=== PATIENT | female | born 1990 | race African-American/Black ===

== ENCOUNTER 2016-06-12 19:04 | Emergency (ER) | payer MEDICAID ==
[~2016-06-12] VITALS: Ht 165.1 cm; Wt 68.0 kg
[~2016-06-12 19:04] MED LIST: IBUPROFEN600 MG ORAL; NKM; PERCOCET 5-3251 EACH PO; VICODIN 5-5001 EACH PO
[2016-06-12 21:50] VITALS: BP 120/75
[2016-06-12 22:10] VITALS: BP 120/75
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
== END 2016-06-12 22:10 | disposition left against medical advice (07) ==
LOC: EMR 20:55
DX: S16.1XXA Strain of muscle, fascia and tendon at neck level, initial encounter (principal); S20.212A Contusion of left front wall of thorax, initial encounter; V43.62XA Car passenger injured in collision with other type car in traffic accident, initial encounter; Y93.9 Activity, unspecified; Y92.410 Unspecified street and highway as the place of occurrence of the external cause
CPT/HCPCS: 99282

== ENCOUNTER 2016-06-15 14:30 | Emergency (ER) | payer MEDICAID ==
[~2016-06-15] VITALS: Ht 165.1 cm; Wt 68.0 kg
[2016-06-15 14:37] VITALS: BP 118/78
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
[2016-06-15] MEDS ORDERED: IBUPROFEN600 MG ORAL (16:13)
[2016-06-15] MEDS ORDERED: TRAMADOL HCL50 MG ORAL (16:13)
[2016-06-15 16:22] VITALS: BP 114/72
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
== END 2016-06-15 16:29 | disposition home or self-care (01) ==
LOC: EMR 15:22
DX: R07.89 Other chest pain (principal); M54.9 Dorsalgia, unspecified; V49.50XA Passenger injured in collision with unspecified motor vehicles in traffic accident, initial encounter; Y92.410 Unspecified street and highway as the place of occurrence of the external cause; J45.909 Unspecified asthma, uncomplicated
CPT/HCPCS: 99284